=== PATIENT | male | born 1950 | race Caucasian/White ===

== ENCOUNTER → 2017-04-10 | Outpatient (CLI) | payer MEDICARE | LOC: KOH-I 15:44 | DX: Z00.01 Encounter for general adult medical examination with abnormal findings (principal); R60.0 Localized edema; E11.42 Type 2 diabetes mellitus with diabetic polyneuropathy; E11.65 Type 2 diabetes mellitus with hyperglycemia; E11.69 Type 2 diabetes mellitus with other specified complication; E78.2 Mixed hyperlipidemia; G89.4 Chronic pain syndrome; I25.10 Atherosclerotic heart disease of native coronary artery without angina pectoris; I13.0 Hypertensive heart and chronic kidney disease with heart failure and stage 1 through stage 4 chronic kidney disease, or unspecified chronic kidney disease; I50.32 Chronic diastolic (congestive) heart failure; N18.3 Chronic kidney disease, stage 3 (moderate); I67.89 Other cerebrovascular disease; I69.821 Dysphasia following other cerebrovascular disease; I69.998 Other sequelae following unspecified cerebrovascular disease; J30.89 Other allergic rhinitis; J43.8 Other emphysema; M50.30 Other cervical disc degeneration, unspecified cervical region; M51.36 Other intervertebral disc degeneration, lumbar region; T78.49XS Other allergy, sequela | CPT/HCPCS: 93970 ==